=== PATIENT | female | born 1995 | race Caucasian/White ===

== ENCOUNTER 2017-10-07 11:25 | Emergency (ER) | payer SELFPAY ==
[2017-10-07 11:26] VITALS: BP 138/83; PULSE 80; RESP 14; TEMP 98.3; O2SAT 97
[2017-10-07] MEDS ORDERED: BIRTH CONTROL (11:48)
--- NOTE | 2017-10-07 12:05 | PD ---
HPI . Request for suture removal Chief Complaint: GI Complaint Time Seen by Provider: 11:45 Travel History International Travel<30 days: No Contact w/Intl Traveler<30days: No Traveled to known affect area: No History of Present Illness HPI This patient is status post appendectomy on September 28 in [facility]. She has subsequently returned to the [place] and needs to have her sutures removed. She reports that she is having no real problem with eating and drinking. She has not been running a fever. She is complaining with some soreness associated with the wound but states it is not very bad. She is also complaining with some numbness around the wound. She states that she felt dizzy yesterday but is making adequate urine. PFSH Past Medical History ?: Not Past Surgical History Abdominal Surgery: Yes (APPENDECTOMY 09-28-17) Appendectomy: Yes Social History Alcohol Use: Yes Tobacco Use: No Substance Use: No Allergies-Medications (Allergen,Severity, Reaction): Coded Allergies: No Known Allergies (Unverified , 10/07/17) Reported Meds & Prescriptions Reported Meds & Active Scripts Active Reported [ Control ] Review of Systems Except as stated in HPI: all other systems reviewed are Neg General / Constitutional: No: Fever, Chills HENT: Positive: Lightheadedness Gastrointestinal: Positive: Abdominal Pain, No: Nausea, Vomiting, Diarrhea, Loss of Appetite Physical Exam Narrative GENERAL: Awake and alert and in no acute distress. SKIN: warm/dry. Well-healed surgical wound in the right lower quadrant. No drainage. No redness or warmth surrounding the wound. HEAD: Normocephalic. EYES: Pupils equal and round. No scleral icterus. No injection or drainage. ENT: No nasal bleeding or discharge. Mucous membranes pink and moist. NECK: Trachea midline. Full range of motion without pain.. CARDIOVASCULAR: Regular rate and rhythm. RESPIRATORY: No accessory muscle use. Clear to auscultation. Breath sounds equal bilaterally. GASTROINTESTINAL: Abdomen soft. Nontender. Bowel sounds present. Nondistended. MUSCULOSKELETAL: No obvious deformities. NEUROLOGICAL: Awake and alert. No obvious cranial nerve deficits. Motor grossly within normal limits. Normal speech. PSYCHIATRIC: Appropriate mood and affect; insight and judgment normal. Data Data Last Documented VS Vital Signs Date Time Temp Pulse Resp B/P (MAP) Pulse Ox O2 Delivery O2 Flow Rate FiO2 10/07/17 12:08 62 18 108/61 (77) 83 18 112/68 (83) 10/07/17 11:26 98.3 97 Orders Orders Orthostatic Vital Signs (10/07/17 11:51) Ed Discharge Order (10/07/17 12:11) MDM Medical Decision Making Medical Screen Exam Complete: Yes Emergency Medical Condition: Yes Differential Diagnosis My differential diagnosis of a wound check includes but is not limited to normal healing, delayed healing, localized wound infection, cellulitis, sepsis Narrative Course This patient presents for suture removal. She is status post an appendectomy on September 28 in [facility]. The sutures have been removed. The patient states that she was dizzy yesterday. I will have the nurse check orthostatic vital signs prior to discharge. Orthostatic vital signs are negative. Diagnosis Primary Impression: Visit for suture removal Additional Impression: Dizziness Patient Instructions: General Instructions, Open Appendectomy (DC) Disposition: 01 DISCHARGE HOME Condition: Stable Ángela Bonner MD Oct 07, 2017 12:05
[2017-10-07 12:08] VITALS: BP_SYST 108; BP_SYST 112; BP_DIAS 61; BP_DIAS 68; RESP 18
== END 2017-10-07 12:22 | disposition home or self-care (01) ==
LOC: NEPD 11:25
DX: Z09 Encounter for follow-up examination after completed treatment for conditions other than malignant neoplasm (principal); Z48.02 Encounter for removal of sutures; Z90.49 Acquired absence of other specified parts of digestive tract
CPT/HCPCS: 99281